=== PATIENT | male | born 1950 | race Caucasian/White ===

== ENCOUNTER 2017-12-13 17:50 | Emergency (ER) | payer OTHER ==
[~2017-12-13] VITALS: Ht 165.1 cm; Wt 104.3 kg
[~2017-12-13 17:50] MED LIST: ACETAMINOPHEN-1 EAC1 PO; ASPIRIN EC81 M1 PO; C-500500 MG PO; CRESTOR10 MG PO; CRESTOR40 MG; FISH OIL 1,0001 EAC8 PO; GREEN COFFEE B400 MG; HALOPERIDOL 2 MG2 M1 PO; HUMULINR100 SUBQ; LANTUS SUBQ; LIPITOR10 MG; LOSARTAN POTASS50 MG PO; METOPROLOL SUCC25 M1; NORCO 5-325 TA1 EACH PO; OXYCODONE HCL 55 MG PO; RANITIDINE 150150 M1 PO; SLO-NIACIN500 MG PO; SYNTHROID150 MCG PO
[2017-12-13 19:06] LABS: ABSOLUTE EOSINOPHILS 0.2 thou/uL (0.0-0.7); ABSOLUTE LYMPHOCYTES 1.4 thou/uL (0.8-5.3); ABSOLUTE NEUTROPHILS 8.1 thou/uL (1.6-8.1); BASOPHILS 0.4 %; EOSINOPHILS 2.1 %; HEMATOCRIT 41.9 % (42.0-52.0); LYMPHOCYTES 12.9 %; MCH 31.6 pg (26.0-34.0); MCHC 33.5 g/dL (28.0-37.0); MCV 94.2 fL (80.0-100.0); MONOCYTES 9.5 %; MPV 7.9 fl. (7.2-11.1); NUCLEATED RBCS 0 /100WBC; PLATELET COUNT* 199 thou/uL (150-400); POLYS 75.1 %; RBC 4.45 mil/uL (4.50-6.00); RDW-CV 12.8 % (10.5-14.5); WBC 10.8 thou/uL (4.0-11.0)
[2017-12-13 19:12] LABS: URINE BILIRUBIN NEGATIVE (Negative); URINE BLOOD 3+ (Negative); URINE CLARITY SL CLOUDY; URINE COLOR YELLOW; URINE GLUCOSE-RANDOM NEGATIVE (Negative); URINE KETONES 1+ (Negative); URINE LEUKOCYTES-REFLEX NEGATIVE (Negative); URINE NITRITE-REFLEX NEGATIVE (Negative); URINE PROTEIN TRACE (Negative); URINE SPECIFIC GRAVITY 1.025 (1.005-1.030); URINE UROBILINOGEN 0.2 E.U./dl (0.2-1.0)
[2017-12-13 19:20] LABS: CALCIUM 9.5 mg/dL (8.5-10.1); CREATININE 1.2 mg/dL (0.6-1.3); POTASSIUM 3.7 mmol/L (3.5-5.1); TOTAL PROTEIN 7.6 g/dL (6.4-8.2)
[2017-12-13 19:32] LABS: CRYSTALS None Seen /LPF (None Seen); MUCUS None Seen strn/LPF (None Seen); URINE RBC >20 Many /HPF (0-2); URINE WBC-REFLEX 0-5 Rare /HPF (0-5)
[2017-12-13 19:33] LABS: CASTS None Seen /LPF (None Seen); SQUAMOUS NONE SEEN /LPF (0-3)
[2017-12-13 19:35] LABS: BACTERIA-REFLEX None Seen /HPF (None Seen)
[2017-12-13] MEDS ORDERED: FLOMAX0.4 MG PO (20:43)
[2017-12-13] MEDS ORDERED: NORCO 5-325 TA1 EACH PO (20:43)
[2017-12-13] MEDS ORDERED: IBUPROFEN 800800 M1 PO (20:43)
[2017-12-13] MEDS ORDERED: ZOFRAN ODT4 MG PO (20:43)
[2017-12-13 21:16] VITALS: BP 177/85
== END 2017-12-13 21:16 | disposition home or self-care (01) ==
LOC: M.ERS 17:50
PROVIDERS: Personal Emergency Response Attendant
DX: N20.0 Calculus of kidney (principal); R10.31 Right lower quadrant pain; I10 Essential (primary) hypertension; I25.10 Atherosclerotic heart disease of native coronary artery without angina pectoris; E03.9 Hypothyroidism, unspecified; E11.9 Type 2 diabetes mellitus without complications; F20.9 Schizophrenia, unspecified; Z79.4 Long term (current) use of insulin; Z95.9 Presence of cardiac and vascular implant and graft, unspecified

== ENCOUNTER 2019-01-14 15:09 | Inpatient (IN) | payer OTHER ==
[~2019-01-14] VITALS: Ht 162.6 cm; Wt 83.0 kg
[~2019-01-14 15:09] MED LIST changes: +FLOMAX0.4 MG PO; +IBUPROFEN 800800 M1 PO; +ZOFRAN ODT4 MG PO
[2019-01-14 15:23] VITALS: BP 146/73
[2019-01-14] MEDS ORDERED: METFORMIN HCL500 MG PO (15:27)
[2019-01-14 15:44] LABS: URINE BILIRUBIN NEGATIVE (Negative); URINE BLOOD 1+ (Negative); URINE CLARITY CLEAR; URINE COLOR YELLOW; URINE GLUCOSE-RANDOM NEGATIVE (Negative); URINE KETONES NEGATIVE (Negative); URINE LEUKOCYTES NEGATIVE (Negative); URINE NITRITE NEGATIVE (Negative); URINE PROTEIN NEGATIVE (Negative); URINE UROBILINOGEN 0.2 E.U./dl (0.2-1.0)
[2019-01-14 15:51] LABS: SQUAMOUS 0-3 Few /LPF (0-3)
[2019-01-14 15:52] LABS: BACTERIA 1-9 Few /HPF (None Seen); CASTS None Seen /LPF (None Seen); CRYSTALS None Seen /LPF (None Seen); URINE RBC 3-10 Few /HPF (0-2); URINE WBC 0-5 Rare /HPF (0-5)
[2019-01-14 15:58] LABS: ABSOLUTE EOSINOPHILS 0.4 thou/uL (0.0-0.7); ABSOLUTE LYMPHOCYTES 1.2 thou/uL (0.8-5.3); ABSOLUTE MONOCYTES 0.5 thou/uL (0.0-1.2); ABSOLUTE NEUTROPHILS 3.4 thou/uL (1.6-8.1); BASOPHILS 0.4 %; EOSINOPHILS 7.6 %; HEMATOCRIT 40.4 % (42.0-52.0); HEMOGLOBIN 13.4 gm/dL (14.0-18.0); LYMPHOCYTES 21.9 %; MCH 31.9 pg (26.0-34.0); MCHC 33.3 g/dL (28.0-37.0); MCV 95.9 fL (80.0-100.0); MONOCYTES 9.6 %; MPV 8.2 fl. (7.2-11.1); NUCLEATED RBCS 0 /100WBC; PLATELET COUNT* 194 thou/uL (150-400); POLYS 60.5 %; RBC 4.21 mil/uL (4.50-6.00); WBC 5.7 thou/uL (4.0-11.0)
[2019-01-14 16:05] LABS: CALCIUM 8.7 mg/dL (8.5-10.1); CREATININE 0.9 mg/dL (0.6-1.3); POTASSIUM 3.8 mmol/L (3.5-5.1)
[2019-01-14 16:10] LABS: ALBUMIN 3.9 g/dL (3.4-5.0); TOTAL BILIRUBIN 0.5 mg/dL (<0.1-1.0); TOTAL PROTEIN 7.2 g/dL (6.4-8.2)
[2019-01-14 18:54] VITALS: BP 146/73
== END 2019-01-14 18:38 | disposition left against medical advice (07) | DRG 690 ==
LOC: M.ERS 15:09 → M.TBA-ER 17:07
PROVIDERS: Physician Assistant
DX: N12 Tubulo-interstitial nephritis, not specified as acute or chronic (principal); N20.2 Calculus of kidney with calculus of ureter; I10 Essential (primary) hypertension; E03.9 Hypothyroidism, unspecified; E11.9 Type 2 diabetes mellitus without complications; F20.9 Schizophrenia, unspecified; Z53.21 Procedure and treatment not carried out due to patient leaving prior to being seen by health care provider; I25.10 Atherosclerotic heart disease of native coronary artery without angina pectoris; Z95.5 Presence of coronary angioplasty implant and graft; Z79.4 Long term (current) use of insulin; Z87.891 Personal history of nicotine dependence

== ENCOUNTER 2020-05-24 17:51 | Emergency (ER) | payer OTHER ==
[~2020-05-24] VITALS: Ht 157.5 cm; Wt 85.3 kg
[~2020-05-24 17:51] MED LIST changes: +METFORMIN HCL500 MG PO
[2020-05-24] MEDS ORDERED: NORCO 5-325 TA1 EAC1 PO (19:47)
[2020-05-24 20:13] VITALS: BP 183/51
== END 2020-05-24 20:14 | disposition home or self-care (01) ==
LOC: M.ERS 17:51
DX: M79.604 Pain in right leg (principal); M25.551 Pain in right hip; I10 Essential (primary) hypertension; I25.10 Atherosclerotic heart disease of native coronary artery without angina pectoris; E03.9 Hypothyroidism, unspecified; F20.9 Schizophrenia, unspecified; Z79.4 Long term (current) use of insulin; Z95.5 Presence of coronary angioplasty implant and graft

== ENCOUNTER 2021-03-13 17:18 | Emergency (ER) | payer OTHER ==
[~2021-03-13] VITALS: Ht 162.6 cm; Wt 77.1 kg
[~2021-03-13 17:18] MED LIST changes: +NORCO 5-325 TA1 EAC1 PO
[2021-03-13 17:32] VITALS: BP 170/110
[2021-03-13] MEDS ORDERED: TRIAMCINOLONE A15 G3 TOP (17:39)
== END 2021-03-13 17:49 | disposition home or self-care (01) ==
LOC: M.ERS 17:18
DX: L30.9 Dermatitis, unspecified (principal); I25.10 Atherosclerotic heart disease of native coronary artery without angina pectoris; I25.2 Old myocardial infarction; I10 Essential (primary) hypertension; E03.9 Hypothyroidism, unspecified; E11.9 Type 2 diabetes mellitus without complications; F20.9 Schizophrenia, unspecified; Z95.5 Presence of coronary angioplasty implant and graft; Z79.899 Other long term (current) drug therapy